=== PATIENT | male | born 1995 | race Caucasian/White ===

== ENCOUNTER 2022-01-29 09:56 | Outpatient (CLI) | payer OTHER ==
--- NOTE | 2022-01-29 12:48 | MRI Report ---
PROCEDURE: Knee LT W/O INDICATIONS: PAIN IN KNEE TECHNIQUE: Noncontrast sagittal PD fast spin echo and T2 fast spin echo with fat saturation, sagittal 3-D gradie nt sequence with fat saturation; coronal T1 spin echo and PD fast spin echo with fat saturation, and axial PD fast spin echo with fat saturation through the knee. COMPARISON: None. Findings: Medial meniscus: No surface communication/tear. Lateral meniscus: No surface communication/tear. LIGAMENTS/TENDONS: Patellar tendon: Intact. Distal quadriceps tendon: Intact. Hoffa's fat pad: No evidence of fibrosis or mass. PCL: Intact. ACL: Intact. Reconstructed Lateral collateral ligament complex: No significant abnormality. Popliteus tendon: Intact. Medial collateral ligament: No significant abnormality. MARROW: No significant abnormality. Susceptibility artifact from the patient's ACL reconstruction roman rdware. CARTILAGE: No significant chondromalacia or delamination injury. Muscles: No significant edema or atrophy. Joint effusion/Alejo's cyst: No large joint effusion or Alejo's cyst. Subcutaneous soft tissues: No significant edema. IMPRESSION: 1.No evidence of internal derangement. Reviewed by: Nilo Gonzalez MD on 01/29/2022 12:46 PM PDT Approved by: Nilo Gonzalez MD on 01/29/2022 12:46 PM PDT Station ID: [id number]
== END 2022-01-29 09:57 | disposition home or self-care (01) ==
LOC: DI 09:56
PROVIDERS: ATTEND Student in an Organized Health Care Education/Training Program
DX: M25.562 Pain in left knee (principal)

== ENCOUNTER 2022-08-14 12:40 | Outpatient (CLI) | payer OTHER ==
--- NOTE | 2022-08-14 15:24 | XRAY Report ---
PROCEDURE: Lumbar Spine 2 View INDICATIONS: LOW BACK PX TECHNIQUE: 3 views of the lumbar spine were acquired. COMPARISON: None. FINDINGS: Bones: 5 [id number] vertebrae are present. There is normal bony alignment. No vertebral body compression fractures. No suspicious bony lesions. Soft tissues: Overlying bowel gas pattern is normal. No suspicious soft tissue calcifications. Mod erate fecal debris in the right colon IMPRESSION: Normal lumbar spine radiographs Reviewed by: Iban Sanchez MD on 08/14/2022 2:23 PM [place] Approved by: Iban Sanchez MD on 08/14/2022 2:23 PM [place] Station ID: [id number]
== END 2022-08-14 23:59 | disposition home or self-care (01) ==
LOC: DI.N 12:40
PROVIDERS: ATTEND Physician Assistant Medical
DX: M54.50 Low back pain, unspecified (principal)

== ENCOUNTER 2023-12-26 14:07 | Outpatient (CLI) | payer OTHER ==
--- NOTE | 2023-12-26 15:13 | MRI Report ---
PROCEDURE: Lumbar Spine WO INDICATIONS: LOW BACK PAIN TECHNIQUE: Noncontrast sagittal T1 spin echo and T2 fast echo, sagittal STIR, axial T1 and T2 fast spin echo thr ough the lumbar spine. In cases with scoliosis, additional coronal T2 fast spin echo may be performe d. COMPARISON: Radiograph 08/14/2022 FINDINGS: Image quality: Excellent. Alignment and Curvature: There is normal bony alignment. Bone Marrow: Marrow is of normal overall signal. No acute vertebral body compression fractures. Spinal Cord: Conus medullaris terminates at the L1 level. Visualized cord demonstrates normal signa l and size. Paraspinous Soft Tissues: No paravertebral masses. T12-L1: Normal in appearance. L1-L2: Normal in appearance. L2-L3: Normal in appearance. L3-L4: Normal in appearance. L4-L5: Normal in appearance. L5-S1: Asymmetric posterior disc bulge. No spinal canal narrowing or neural foraminal narrowing. IMPRESSION: Asymmetric posterior disc bulge at L5-S1. No spinal canal or neural foraminal narrowing. Reviewed by: Ivan Hoyos MD on 12/26/2023 3:11 PM PDT Approved by: Ivan Hoyos MD on 12/26/2023 3:11 PM PDT Station ID: [id number]
== END 2023-12-26 14:08 | disposition home or self-care (01) ==
LOC: DI 14:07
PROVIDERS: ATTEND Student in an Organized Health Care Education/Training Program
DX: M51.37 Other intervertebral disc degeneration, lumbosacral region (principal)